=== PATIENT | female | born 1990 | race Two or more races ===

== ENCOUNTER 2019-03-30 11:19 | Inpatient (IN) | payer SELFPAY ==
[~2019-03-30] VITALS: Ht 157.5 cm; Wt 62.1 kg
[2019-03-30 11:46] LABS: BILIRUBIN,URINE SMALL (NEG); CLARITY,URINE CLOUDY; COLOR,URINE AMBER; NITRITE,URINE NEGATIVE (NEG); PROTEIN,URINE 30 mg/dL (NEG-TRACE)
[2019-03-30 11:52] LABS: BARBITURATES NEG (NEG); BENZODIAZEPINES NEG (NEG); CANNABINOIDS NEG (NEG); COCAINE NEG (NEG); METHADONE NEG (NEG); OPIATES NEG (NEG); PHENCYCLIDINE NEG (NEG)
[2019-03-30 11:53] LABS: AMPHETAMINE/METHAMPHETAMINE NEG (NEG)
[2019-03-30 12:00] LABS: BACTERIA,URINE MANY /HPF (0-FEW); SQUAMOUS EPITHELIAL CELL,UR MANY /LPF
[2019-03-30 12:01] LABS: RBC,URINE 20-40 /HPF (0-2); WBC,URINE 20-40 /HPF (0-4)
[2019-03-30] MEDS: IV RINGERS,LACTATED 1000ML 1,000 ML IV SCH ×4 (13:28→21:02)
[2019-03-30] MEDS: AMPICILLIN SODIUM 1 GM in IV NORMAL SALINE 50ML 50 ML IV SCH ×3 (13:28→20:00)
[2019-03-30 13:30] LABS: BASO % 0 % (0-3); EOS # 0.1 x10^3/uL (0.0-0.7); EOS % 1 % (0-3); HEMATOCRIT 38.1 % (36.0-47.0); HEMOGLOBIN 12.9 g/dL (12.0-15.5); LYMPH % 17 % (24-48); MEAN CORPUSCULAR HEMOGLOBIN 34 pg (25-35); MEAN CORPUSCULAR HGB CONC 34 g/dL (31-37); MEAN CORPUSCULAR VOLUME 101 fL (79-100); MONO # 0.4 x10^3/uL (0.0-1.1); MONO % 7 % (0-9); NEUT # 4.8 x10^3uL (1.8-7.7); NEUT % 76 % (31-73); PLATELET COUNT 234 x10^3/uL (140-400); RED BLOOD COUNT 3.76 x10^6/uL (3.50-5.40); RED CELL DISTRIBUTION WIDTH 13.8 % (11.5-14.5); WHITE BLOOD COUNT 6.3 x10^3/uL (4.0-11.0)
[2019-03-30] MEDS ORDERED: NALBUPHINE 10 MG/ML AMPUL. IV PRN ×2 (15:00)
[2019-03-30] MEDS ORDERED: fentaNYL PF VIAL 100 MCG/2 ML VIAL IV PRN ×2 (15:00)
[2019-03-30] MEDS ORDERED: BUTORPHANOL 2 MG/ML VIAL. IV PRN ×2 (15:00)
[2019-03-30] MEDS ORDERED: 0.9 % SODIUM CHLORIDE 10 ML DISP.SYRIN. IV PRN ×2 (15:00→22:00)
[2019-03-30] MEDS ORDERED: LIDOCAINE 1% PF 30 ML VIAL. INJ PRN (15:00)
[2019-03-30] MEDS ORDERED: ONDANSETRON PF 4 MG/2 ML VIAL. IV PRN ×2 (15:00→22:00)
[2019-03-30] MEDS ORDERED: TERBUTALINE 1 MG/ML VIAL. SQ PRN (15:00)
[2019-03-30] MEDS ORDERED: OXYTOCIN 30 UNIT/500 ML PREMIX 500 ML IV PRN ×2 (15:00→22:00)
[2019-03-30] MEDS ORDERED: DINOPROSTONE 10 MG SUPP.VAG VG ONE (15:00)
[2019-03-30 15:10] VITALS: BP 121/75
--- NOTE | 2019-03-30 15:20 | RAD ---
EXAM: Obstetrics sonogram. HISTORY: Limited care. TECHNIQUE: Sonographic imaging of a gravid uterus was performed. COMPARISON: None. FINDINGS: There is a single intrauterine fetus in cephalic presentation with a heart rate of 150 bpm. The cervix is closed and measures 3.7 cm in length. There is an anterior placenta without evidence of placenta previa. The amniotic fluid index is decreased at 2.8 cm. There is body motion. The biparietal diameter is 9.35 cm, corresponding with 38 weeks and 0 days. The head circumference is 33.98 cm, corresponding with 39 weeks and 1 day. The abdominal circumference is 34.97 cm, corresponding with 38 weeks and 6 days. The femoral length is 7.61 cm, corresponding with 38 weeks and 6 days. The estimated gestational age patient combined ultrasound measurements is 38 weeks and 5 days and the estimated due date is 04/08/2019. IMPRESSION: 1. Single intrauterine fetus in cephalic presentation with a heart rate of 150 bpm and gestational age based on ultrasound measurements of 38 weeks and 5 days. The anatomy is not formally assessed due to late gestational age. 2. Oligohydramnios. The MARCIAL is 2.8 cm. This information was communicated to the RN caring for the patient at the conclusion of the exam. Electronically signed by: Sujatha Galindo MD (03/30/2019 3:17 PM) [facility]
[2019-03-30] MEDS ORDERED: ceFAZolin 2GM PREMIX 2 GM/50 ML BAG IV ONE (21:00)
[2019-03-30] MEDS ORDERED: DEXAMETHASONE SOD PHOS 4 MG/ML VIAL ONE (21:42)
[2019-03-30] MEDS ORDERED: OXYTOCIN 10 UNIT/ML VIAL. ONE (21:45)
[2019-03-30] MEDS ORDERED: ONDANSETRON PF 4 MG/2 ML VIAL. ONE (21:45)
[2019-03-30] MEDS ORDERED: fentaNYL PF VIAL 100 MCG/2 ML VIAL ONE (21:45)
[2019-03-30] MEDS ORDERED: ZOLPIDEM 5 MG TABLET. PO PRN (22:00)
[2019-03-30] MEDS ORDERED: CITRIC ACID/SODIUM CITRATE 30 ML SOLUTION. ONE (22:00)
[2019-03-30] MEDS ORDERED: diphenhydrAMINE ORAL ELIXIR 12.5 MG/5 ML ML PO PRN (22:00)
[2019-03-30] MEDS ORDERED: CITRIC ACID/SODIUM CITRATE 30 ML SOLUTION. PO ONE (22:00)
[2019-03-30] MEDS ORDERED: MAG HYDROX/ALUMINUM HYD/SIMETH 30 ML ORAL.SUSP PO PRN (22:00)
[2019-03-30] MEDS ORDERED: DOCUSATE SODIUM 100 MG CAPSULE. PO PRN (22:00)
[2019-03-30] MEDS ORDERED: MMR per PROTOCOL. MC PRN (22:00)
[2019-03-30] MEDS ORDERED: HYDROCORTISONE 1% TOPICAL OINTMENT 30GM TUBE. TP PRN (22:00)
--- NOTE | 2019-03-30 22:06 | PDOC ---
GENERAL General: 28 yrs old lady 38 weeks admitted in labor she is anne patient and also has low amniotic fluid. heart tones has tachycardia and cervix closed. non reassuring heart tones. has also bleeding. VITAL SIGNS Vital Signs: Vital Signs Date Time Temp Pulse Resp B/P (MAP) Pulse Ox O2 Delivery O2 Flow Rate FiO2 03/30/19 15:10 98.4 75 20 121/75 (90) 98.4 ALLERGIES Allergies: Allergies Coded Allergies Type Severity Reaction Last Updated Verified No Known Drug Allergies 03/30/19 No MEDS Medications: Current Medications Medications (Trade) Dose Ordered Sig/Nirmala Start Time Stop Time Status Last Admin Dose Admin Ampicillin Sodium 1 gm/Sodium Chloride 50 ml @ 100 mls/hr Q4HRS 03/30/19 13:00 03/30/19 17:39 100 MLS/HR Butorphanol Tartrate (Stadol) 2 mg PRN Q1HR PRN 03/30/19 15:00 Cefazolin Sodium/ Dextrose 50 ml @ 100 mls/hr 1X ONCE 03/30/19 22:00 03/30/19 22:29 Citric Acid/ Sodium Citrate (Bicitra) 30 ml 1X ONCE 03/30/19 22:00 03/30/19 22:01 Dexamethasone Sodium Phosphate (Decadron) 4 mg STK-MED ONCE 03/30/19 21:42 03/30/19 21:43 DC Dinoprostone (Cervidil) 10 mg 1X ONCE 03/30/19 15:00 03/30/19 15:09 DC 03/30/19 16:08 10 MG Fentanyl Citrate (Fentanyl 2ml Vial) 100 mcg STK-MED ONCE 03/30/19 21:45 03/30/19 21:46 DC Ibuprofen (Motrin) 800 mg PRN Q6HRS PRN 03/30/19 15:00 Lidocaine HCl (Xylocaine 1% Pf 30ml Vial) 30 ml 1X PRN PRN 03/30/19 15:00 04/01/19 14:59 Nalbuphine HCl (Nubain) 10 mg PRN Q1HR PRN 03/30/19 15:00 Ondansetron HCl (Zofran) 4 mg STK-MED ONCE 03/30/19 21:45 03/30/19 21:46 DC Oxytocin (Pitocin) 10 unit STK-MED ONCE 03/30/19 21:45 03/30/19 21:46 DC Oxytocin/Sodium Chloride 500 ml @ 0 mls/hr CONT PRN PRN 03/30/19 15:00 Ringer's Solution 1,000 ml @ 125 mls/hr Q8H 03/30/19 13:02 03/30/19 20:37 125 MLS/HR Sodium Chloride (Normal Saline Flush) 3 ml QSHIFT PRN 03/30/19 15:00 03/30/19 16:08 3 ML Terbutaline Sulfate (Brethine) 0.25 mg 1X PRN PRN 03/30/19 15:00 03/31/19 14:59 LAB Lab: Laboratory Tests Test 03/30/19 11:38 03/30/19 13:10 Urine Collection Type Unknown Urine Color Marii Urine Clarity Cloudy Urine pH 7.0 Urine Specific [place] 1.025 Urine Protein 30 mg/dL (NEG-TRACE) Urine Glucose (UA) Negative mg/dL (NEG) Urine Ketones (Stick) Trace mg/dL (NEG) Urine Blood Large (NEG) Urine Nitrite Negative (NEG) Urine Bilirubin Small (NEG) Urine Urobilinogen Dipstick 1.0 mg/dL (0.2 mg/dL) Urine Leukocyte Esterase Moderate (NEG) Urine RBC 20-40 /HPF (0-2) Urine WBC 20-40 /HPF (0-4) Urine Squamous Epithelial Cells Many /LPF Urine Bacteria Many /HPF (0-FEW) Urine Mucus Marked /LPF Urine Opiates Screen Neg (NEG) Urine Methadone Screen Neg (NEG) Urine Barbiturates Neg (NEG) Urine Phencyclidine Screen Neg (NEG) Urine Amphetamine/Methamphetamine Neg (NEG) Urine Benzodiazepines Screen Neg (NEG) Urine Cocaine Screen Neg (NEG) Urine Cannabinoids Screen Neg (NEG) Urine Ethyl Alcohol Neg (NEG) White Blood Count 6.3 x10^3/uL (4.0-11.0) Red Blood Count 3.76 x10^6/uL (3.50-5.40) Hemoglobin 12.9 g/dL (12.0-15.5) Hematocrit 38.1 % (36.0-47.0) Mean Corpuscular Volume 101 fL (79-100) Mean Corpuscular Hemoglobin 34 pg (25-35) Mean Corpuscular Hemoglobin Concent 34 g/dL (31-37) Red Cell Distribution Width 13.8 % (11.5-14.5) Platelet Count 234 x10^3/uL (140-400) Neutrophils (%) (Auto) 76 % (31-73) Lymphocytes (%) (Auto) 17 % (24-48) Monocytes (%) (Auto) 7 % (0-9) Eosinophils (%) (Auto) 1 % (0-3) Basophils (%) (Auto) 0 % (0-3) Neutrophils # (Auto) 4.8 x10^3uL (1.8-7.7) Lymphocytes # (Auto) 1.0 x10^3/uL (1.0-4.8) Monocytes # (Auto) 0.4 x10^3/uL (0.0-1.1) Eosinophils # (Auto) 0.1 x10^3/uL (0.0-0.7) Basophils # (Auto) 0.0 x10^3/uL (0.0-0.2) ASSESSMENT & PLAN A&P Explained to patient about non reassuring heart rates. Also low amniotic fluid. will do . REANNA MACHADO MD March 30, 2019 22:06
--- NOTE | 2019-03-30 23:18 | OP ---
DATE OF SURGERY: 03/30/2019 PREOPERATIVE DIAGNOSES: Primigravida, 38 weeks , oligohydramnios and non-reassuring heart rate pattern with distress. POSTOPERATIVE DIAGNOSES: Primigravida, 38 weeks , oligohydramnios and non-reassuring heart rate pattern with distress. OPERATION PERFORMED: Lower segment section. OPERATIVE PROCEDURE: The patient was taken to the operating room and per patient request, she was given general anesthetic. Under general anesthetic, a Pfannenstiel incision was made. Abdomen opened in layers. Bladder flap peritoneum was dissected and bladder pushed way down the lower segment of the uterus and incision is made on the uterus and is extended on either side using index fingers. A live female infant, weighing 7-pound 10-ounce was delivered at 2222 hours on 03/30/2019 with the score of 8, 9 and 9 without any problem. Cord was clamped and cord pH were sent for. Cord blood was taken. Placenta removed. Uterus sutured in 2 layers using #1 chromic catgut sutures. Reperitonealization was done with continuous 0 chromic catgut sutures. All the blood clots in the pelvic cavity are removed. Uterus placed in the abdominal cavity and abdomen closed in layers using continuous 0 chromic catgut sutures for the peritoneum, the muscle, and the fascia; 3-0 plain continuous sutures applied for subcutaneous tissue; 3-0 Vicryl subcutaneous sutures were placed. A pressure dressing was given. The patient was sent to the recovery room in good condition. No complications encountered at time of the procedure. Estimated blood loss about 500 mL. Postoperative condition is stable. Mother tolerated the surgery well. No complications at this time. REANNA MACHADO MD DR: JELENA/elda JOB#: [id number] / [id number]
[2019-03-31] MEDS ORDERED: IBUPROFEN 200 MG TABLET. PO SCH
--- NOTE | 2019-03-31 01:22 | HP ---
ADMIT DATE: 03/30/2019 CHIEF COMPLAINT AND HISTORY OF PRESENT ILLNESS: This patient is a 28-year-old Swedish lady, who is a patient from [facility], who came to Labor and Delivery at the hospital with a history of having contractions and also complaining of some vaginal bleeding; and at the time of admission to the hospital, cervix was closed and brownish discharge in the vaginal area and heart tones were 138 per minute. Unknown due date since the patient had a sonogram, which showed 38 weeks' with oligohydramnios and vertex presenting. PHYSICAL EXAMINATION: VITAL SIGNS: Stable. HEAD, EYES, EARS, NOSE AND THROAT EXAMINATION: Within normal limits. LUNGS: Clear. HEART: Heart sounds, regular sinus rhythm. ABDOMEN: A 38-week size uterus. heart tones of 138 per minute, vertex presenting. PELVIC EXAMINATION: Shows cervical os is closed and the presenting part is high. EXTREMITIES: No edema of feet. IMPRESSION: Primigravida, labor, non-reassuring heart rate and distress and oligohydramnios. PLAN: Observation and further treatment. REANNA MACHADO MD DR: JELENA/elda JOB#: [id number] / [id number]
[2019-03-31] MEDS: IV RINGERS,LACTATED 1000ML 1,000 ML IV SCH ×3 (01:29→09:07)
[2019-03-31 02:00] VITALS: BP 102/59
[2019-03-31] MEDS: AMPICILLIN SODIUM 1 GM in IV NORMAL SALINE 50ML 50 ML IV SCH ×3 (03:12)
[2019-03-31 04:45] VITALS: BP 93/58
[2019-03-31] MEDS ORDERED: OXYTOCIN 30 UNIT/500 ML PREMIX 500 ML IV PRN (05:00)
[2019-03-31] MEDS ORDERED: FERROUS SULFATE 325 MG TABLET. PO SCH (08:00)
[2019-03-31 08:04] VITALS: BP 90/53
[2019-03-31] MEDS: oxyCODONE/APAP 5/325 1 TAB TABLET PO PRN ×2 (09:07→16:10)
[2019-03-31 12:38] VITALS: BP 94/57
--- NOTE | 2019-03-31 13:15 | PDOC ---
GENERAL General: Vital signs stable Doing ok. VITAL SIGNS Vital Signs: Vital Signs Date Time Temp Pulse Resp B/P (MAP) Pulse Ox O2 Delivery O2 Flow Rate FiO2 03/31/19 09:07 18 Room Air 03/31/19 08:04 98.7 67 90/53 (65) 98 98.7 I & O I & O Intake and Output 03/31/19 06:59 Intake Total 400 ml Output Total 400 ml Balance 0 ml Intake Oral 400 ml Output Urine Total 400 ml ALLERGIES Allergies: Allergies Coded Allergies Type Severity Reaction Last Updated Verified No Known Drug Allergies 03/30/19 No MEDS Medications: Current Medications Medications (Trade) Dose Ordered Sig/Nirmala Start Time Stop Time Status Last Admin Dose Admin Al Hydroxide/Mg Hydroxide (Mylanta Plus Xs) 30 ml PRN Q4HRS PRN 03/30/19 22:00 Ampicillin Sodium 1 gm/Sodium Chloride 50 ml @ 100 mls/hr Q4HRS 03/30/19 13:00 03/30/19 17:39 100 MLS/HR Butorphanol Tartrate (Stadol) 2 mg PRN Q1HR PRN 03/30/19 15:00 Cefazolin Sodium/ Dextrose (Ancef 2gm Premix) 2 gm STK-MED ONCE 03/30/19 21:00 03/31/19 12:20 DC Citric Acid/ Sodium Citrate (Bicitra) 30 ml STK-MED ONCE 03/30/19 22:00 03/31/19 08:11 DC Dexamethasone Sodium Phosphate (Decadron) 4 mg STK-MED ONCE 03/30/19 21:42 03/30/19 21:43 DC Dinoprostone (Cervidil) 10 mg 1X ONCE 03/30/19 15:00 03/30/19 15:09 DC 03/30/19 16:08 10 MG Diphenhydramine HCl (Benadryl Oral Elixir) 12.5 mg PRN Q6HRS PRN 03/30/19 22:00 Docusate Sodium (Colace) 100 mg PRN BID PRN 03/30/19 22:00 03/31/19 09:06 100 MG Fentanyl Citrate (Fentanyl 2ml Vial) 100 mcg STK-MED ONCE 03/30/19 21:45 03/30/19 21:46 DC Ferrous Sulfate (Feosol) 325 mg BIDWMEALS 03/31/19 08:00 Hydrocortisone (Cortaid) 1 billy PRN QID PRN 03/30/19 22:00 Ibuprofen (Motrin) 600 mg Q6HRS 03/31/19 00:00 Info (Do NOT chart on this placeholder) 1 ea PRN 1X PRN 03/30/19 22:00 Lidocaine HCl (Xylocaine 1% Pf 30ml Vial) 30 ml 1X PRN PRN 03/30/19 15:00 04/01/19 14:59 Nalbuphine HCl (Nubain) 10 mg PRN Q1HR PRN 03/30/19 15:00 Ondansetron HCl (Zofran) 4 mg PRN Q6HRS PRN 03/30/19 22:00 Oxycodone/ Acetaminophen (Percocet 5/325) 2 tab PRN Q4HRS PRN 03/30/19 22:00 03/31/19 09:07 1 TAB Oxytocin (Pitocin) 10 unit STK-MED ONCE 03/30/19 21:45 03/30/19 21:46 DC Oxytocin/Sodium Chloride 500 ml @ 125 mls/hr CONT PRN 03/30/19 22:00 03/31/19 06:00 DC Ringer's Solution 1,000 ml @ 125 mls/hr Q8H 03/30/19 13:02 03/30/19 20:37 125 MLS/HR Sodium Chloride (Normal Saline Flush) 3 ml QSHIFT PRN 03/30/19 22:00 Terbutaline Sulfate (Brethine) 0.25 mg 1X PRN PRN 03/30/19 15:00 03/31/19 14:59 Zolpidem Tartrate (Ambien) 5 mg PRN QHS PRN 03/30/19 22:00 LAB Lab: Laboratory Tests Test 03/30/19 13:10 White Blood Count 6.3 x10^3/uL (4.0-11.0) Red Blood Count 3.76 x10^6/uL (3.50-5.40) Hemoglobin 12.9 g/dL (12.0-15.5) Hematocrit 38.1 % (36.0-47.0) Mean Corpuscular Volume 101 fL (79-100) Mean Corpuscular Hemoglobin 34 pg (25-35) Mean Corpuscular Hemoglobin Concent 34 g/dL (31-37) Red Cell Distribution Width 13.8 % (11.5-14.5) Platelet Count 234 x10^3/uL (140-400) Neutrophils (%) (Auto) 76 % (31-73) Lymphocytes (%) (Auto) 17 % (24-48) Monocytes (%) (Auto) 7 % (0-9) Eosinophils (%) (Auto) 1 % (0-3) Basophils (%) (Auto) 0 % (0-3) Neutrophils # (Auto) 4.8 x10^3uL (1.8-7.7) Lymphocytes # (Auto) 1.0 x10^3/uL (1.0-4.8) Monocytes # (Auto) 0.4 x10^3/uL (0.0-1.1) Eosinophils # (Auto) 0.1 x10^3/uL (0.0-0.7) Basophils # (Auto) 0.0 x10^3/uL (0.0-0.2) ASSESSMENT & PLAN A&P Abdomen soft Uterus firm lochia normal Incision healing ok. REANNA MACHADO MD March 31, 2019 13:15
[2019-03-31] MEDS: IBUPROFEN 400 MG TABLET. PO PRN (16:10)
[2019-03-31 16:11] VITALS: BP 93/62
--- NOTE | 2019-03-31 16:29 | NUR ---
Note: Pt.'s family member Christine Brunner (who is the sister of the Pt.'s [id number]) present to visit Pt. and baby. Christine discussed with Lisa Ann RN and Dhiraj Palumbo RN in [facility] that she and the family have concerns about the Pt. and being able to handle the stress of taking care of the baby once she is discharged home. Pt. currently resides with her brother and her [id number]. Pt.'s is currently incarcerated and it is unknown if he will be released from nursing home. Christine reports the Pt. having a history of "episodes" a year ago where Pt. would fall on the floor, shake, and urinate on herself. Christine reports Pt. was hospitalized more than once for this with no apparent medical findings for episodes. Christine also reports the Pt. makes herself throw up and did throughout the . Also states the Pt. has said, "a ghost got me ," and "I feel like voices take over my body sometimes, " and "if I go crazy again take my baby so nothing bad happens to the baby." Christine denies believing that the Pt. would harm herself or harm the baby. Reports the Pt. has a history of anxiety, and that the Pt.'s mother is schizophrenic. Pt. has acted appropriately appriately with baby this shift, well, participates in assistance from RN well, and asks appropriate questions to telephone translation services (such as wanting to make sure the pain medicine she takes won't affect the baby via .) garment worker Heidi Patel notified by Lisa Ann RN, Heidi states she will notify PAT team for further evaluation. Dhiraj Palumbo RN
--- NOTE | 2019-03-31 16:36 | NUR ---
SS following up with referral regarding "new mom with in care home, financial concerns, history of depression, at risk for post depression." SS discussed with RN. RN reported that infant mother is Brazilian speaking and reported a family history of her mother having schizophrenia. Per RN, infant mother concerned with her own mental health and reported having weird thoughts. Infant RN requesting assessment and evaluation of mother. RN also reported that mother had limited care, but reported that her UDS was negative and she is bonding well with infant and seems concerned for infants well being. SS contacted PAT team and spoke with Etienne. They reported that they would have Heidi from the PAT team come to visit with infant mother today and assess for mental health needs. Infant RN notified.
--- NOTE | 2019-03-31 18:40 | NUR ---
Member from PAT team present, updated on family reports about Pt. per Lisa Ann RN. [employer] Amharic telephone translation line set up for PAT team for further discussion with Pt., No family present in room at this time. Dhiraj Palumbo RN
[2019-03-31 23:00] VITALS: BP 89/55
[2019-04-01] MEDS: IBUPROFEN 400 MG TABLET. PO PRN ×2 (01:33→13:25)
[2019-04-01 06:02] VITALS: BP 105/71
[2019-04-01 06:22] LABS: HEMATOCRIT 32.7 % (36.0-47.0); RED BLOOD COUNT 3.21 x10^6/uL (3.50-5.40); RED CELL DISTRIBUTION WIDTH 13.8 % (11.5-14.5); WHITE BLOOD COUNT 8.7 x10^3/uL (4.0-11.0)
[2019-04-01 11:52] VITALS: BP 95/61
[2019-04-01] MEDS: oxyCODONE/APAP 5/325 1 TAB TABLET PO PRN (13:25)
--- NOTE | 2019-04-01 14:49 | NUR ---
SS following up with referral and assessment for resources. Per notes mothers UDS was negative. PAT team visited with infants mother on 03/31/2019 and provided resources to the [facility] for counseling. PAT team reported no concerns with pt's mental health stability at this time. SS met with infants mother to assess for resources. As observed, infants mother was bonding well with infant well in room. Infants mother reported that she has been living with her brother and sister in law for approximately five months. She reported that infants father was in nursing home. Infants mother reported that she is not a citizen and reported that she is unfamiliar with the medical requirements for children in the [place]. SS discussed well baby exams and provided infants mother with information on [facility]. Infants mother reported that she planned to breast feed at home. Infants mother reported that she lives with her brother and sister in law but they cannot provide her with support as they have enough difficulties providing for there own family. She reported that she does not work and has no income at this time. Infants mother reported that she has no car seat, no diapers or wipes, and has no financial resources to help support to include transportation. Infants mother reported that she does have clothing for . Infants mother agreed to [facility] referral. SS phoned and faxed referral to [facility], ; fax [phone]. SS concerned with mothers lack of resources and supplies for infant and knowledge regarding the medical needs of infant. SS completed DCF hotline report, intake# [id number]. Infant RN notified.
--- NOTE | 2019-04-01 15:13 | PDOC ---
GENERAL General: Patient nursing the Baby. Mom doing well. VITAL SIGNS Vital Signs: Vital Signs Date Time Temp Pulse Resp B/P (MAP) Pulse Ox O2 Delivery O2 Flow Rate FiO2 04/01/19 13:25 16 Room Air 04/01/19 11:52 98.1 87 95/61 (72) 98 98.1 I & O I & O Intake and Output 04/01/19 07:00 Intake Total 6146 ml Output Total 2450 ml Balance 3696 ml Intake Oral 2200 ml IV Total 2000 ml Blood Product IV Normal Saline Flush 1946 ml Output Urine Total 2450 ml # Voids 1 ALLERGIES Allergies: Allergies Coded Allergies Type Severity Reaction Last Updated Verified No Known Drug Allergies 03/30/19 No MEDS Medications: Current Medications Medications (Trade) Dose Ordered Sig/Nirmala Start Time Stop Time Status Last Admin Dose Admin Al Hydroxide/Mg Hydroxide (Mylanta Plus Xs) 30 ml PRN Q4HRS PRN 03/30/19 22:00 04/01/19 13:10 30 ML Ampicillin Sodium 1 gm/Sodium Chloride 50 ml @ 100 mls/hr Q4HRS 03/30/19 13:00 04/01/19 04:06 DC 03/30/19 17:39 100 MLS/HR Butorphanol Tartrate (Stadol) 2 mg PRN Q1HR PRN 03/30/19 15:00 Cefazolin Sodium/ Dextrose (Ancef 2gm Premix) 2 gm STK-MED ONCE 03/30/19 21:00 03/31/19 12:20 DC Citric Acid/ Sodium Citrate (Bicitra) 30 ml STK-MED ONCE 03/30/19 22:00 03/31/19 08:11 DC Dexamethasone Sodium Phosphate (Decadron) 4 mg STK-MED ONCE 03/30/19 21:42 03/30/19 21:43 DC Dinoprostone (Cervidil) 10 mg 1X ONCE 03/30/19 15:00 03/30/19 15:09 DC 03/30/19 16:08 10 MG Diphenhydramine HCl (Benadryl Oral Elixir) 12.5 mg PRN Q6HRS PRN 03/30/19 22:00 Docusate Sodium (Colace) 100 mg PRN BID PRN 03/30/19 22:00 03/31/19 09:06 100 MG Fentanyl Citrate (Fentanyl 2ml Vial) 100 mcg STK-MED ONCE 03/30/19 21:45 03/30/19 21:46 DC Ferrous Sulfate (Feosol) 325 mg BIDWMEALS 03/31/19 08:00 Hydrocortisone (Cortaid) 1 billy PRN QID PRN 03/30/19 22:00 Ibuprofen (Motrin) 600 mg Q6HRS 03/31/19 00:00 Info (Do NOT chart on this placeholder) 1 ea PRN 1X PRN 03/30/19 22:00 Lidocaine HCl (Xylocaine 1% Pf 30ml Vial) 30 ml 1X PRN PRN 03/30/19 15:00 04/01/19 14:59 DC Nalbuphine HCl (Nubain) 10 mg PRN Q1HR PRN 03/30/19 15:00 Ondansetron HCl (Zofran) 4 mg PRN Q6HRS PRN 03/30/19 22:00 Oxycodone/ Acetaminophen (Percocet 5/325) 2 tab PRN Q4HRS PRN 03/30/19 22:00 04/01/19 13:25 1 TAB Oxytocin (Pitocin) 10 unit STK-MED ONCE 03/30/19 21:45 03/30/19 21:46 DC Oxytocin/Sodium Chloride 500 ml @ 125 mls/hr CONT PRN 03/30/19 22:00 03/31/19 06:00 DC Ringer's Solution 1,000 ml @ 125 mls/hr Q8H 03/30/19 13:02 03/30/19 20:37 125 MLS/HR Sodium Chloride (Normal Saline Flush) 3 ml QSHIFT PRN 03/30/19 22:00 Terbutaline Sulfate (Brethine) 0.25 mg 1X PRN PRN 03/30/19 15:00 03/31/19 14:59 DC Zolpidem Tartrate (Ambien) 5 mg PRN QHS PRN 03/30/19 22:00 LAB Lab: Laboratory Tests Test 04/01/19 04:55 White Blood Count 8.7 x10^3/uL (4.0-11.0) Red Blood Count 3.21 x10^6/uL (3.50-5.40) Hemoglobin 11.0 g/dL (12.0-15.5) Hematocrit 32.7 % (36.0-47.0) Mean Corpuscular Volume 102 fL (79-100) Mean Corpuscular Hemoglobin 34 pg (25-35) Mean Corpuscular Hemoglobin Concent 34 g/dL (31-37) Red Cell Distribution Width 13.8 % (11.5-14.5) Platelet Count 181 x10^3/uL (140-400) ASSESSMENT & PLAN A&P Plan dismissal in AM. Vital signs stable. REANNA MACHADO MD April 01, 2019 15:13
[2019-04-01 18:56] VITALS: BP 98/63
[2019-04-01 23:05] VITALS: BP 93/65
[2019-04-02 06:15] VITALS: BP 91/62
--- NOTE | 2019-04-02 09:33 | PDOC ---
GENERAL General: Mom doing ok Breast feeding the Baby. VITAL SIGNS Vital Signs: Vital Signs Date Time Temp Pulse Resp B/P (MAP) Pulse Ox O2 Delivery O2 Flow Rate FiO2 04/02/19 06:15 98.8 81 16 91/62 (72) 98 98.8 04/01/19 23:05 Room Air ALLERGIES Allergies: Allergies Coded Allergies Type Severity Reaction Last Updated Verified No Known Drug Allergies 03/30/19 No MEDS Medications: Current Medications Medications (Trade) Dose Ordered Sig/Nirmala Start Time Stop Time Status Last Admin Dose Admin Al Hydroxide/Mg Hydroxide (Mylanta Plus Xs) 30 ml PRN Q4HRS PRN 03/30/19 22:00 04/01/19 13:10 30 ML Ampicillin Sodium 1 gm/Sodium Chloride 50 ml @ 100 mls/hr Q4HRS 03/30/19 13:00 04/01/19 04:06 DC 03/30/19 17:39 100 MLS/HR Butorphanol Tartrate (Stadol) 2 mg PRN Q1HR PRN 03/30/19 15:00 Cefazolin Sodium/ Dextrose (Ancef 2gm Premix) 2 gm STK-MED ONCE 03/30/19 21:00 03/31/19 12:20 DC Citric Acid/ Sodium Citrate (Bicitra) 30 ml STK-MED ONCE 03/30/19 22:00 03/31/19 08:11 DC Dexamethasone Sodium Phosphate (Decadron) 4 mg STK-MED ONCE 03/30/19 21:42 03/30/19 21:43 DC Dinoprostone (Cervidil) 10 mg 1X ONCE 03/30/19 15:00 03/30/19 15:09 DC 03/30/19 16:08 10 MG Diphenhydramine HCl (Benadryl Oral Elixir) 12.5 mg PRN Q6HRS PRN 03/30/19 22:00 Docusate Sodium (Colace) 100 mg PRN BID PRN 03/30/19 22:00 03/31/19 09:06 100 MG Fentanyl Citrate (Fentanyl 2ml Vial) 100 mcg STK-MED ONCE 03/30/19 21:45 03/30/19 21:46 DC Ferrous Sulfate (Feosol) 325 mg BIDWMEALS 03/31/19 08:00 04/01/19 20:03 DC Hydrocortisone (Cortaid) 1 billy PRN QID PRN 03/30/19 22:00 Ibuprofen (Motrin) 600 mg Q6HRS 03/31/19 00:00 Info (Do NOT chart on this placeholder) 1 ea PRN 1X PRN 03/30/19 22:00 Lidocaine HCl (Xylocaine 1% Pf 30ml Vial) 30 ml 1X PRN PRN 03/30/19 15:00 04/01/19 14:59 DC Nalbuphine HCl (Nubain) 10 mg PRN Q1HR PRN 03/30/19 15:00 Ondansetron HCl (Zofran) 4 mg PRN Q6HRS PRN 03/30/19 22:00 Oxycodone/ Acetaminophen (Percocet 5/325) 2 tab PRN Q4HRS PRN 03/30/19 22:00 04/01/19 13:25 1 TAB Oxytocin (Pitocin) 10 unit STK-MED ONCE 03/30/19 21:45 03/30/19 21:46 DC Oxytocin/Sodium Chloride 500 ml @ 125 mls/hr CONT PRN 03/30/19 22:00 03/31/19 06:00 DC Ringer's Solution 1,000 ml @ 125 mls/hr Q8H 03/30/19 13:02 03/30/19 20:37 125 MLS/HR Sodium Chloride (Normal Saline Flush) 3 ml QSHIFT PRN 03/30/19 22:00 Terbutaline Sulfate (Brethine) 0.25 mg 1X PRN PRN 03/30/19 15:00 03/31/19 14:59 DC Zolpidem Tartrate (Ambien) 5 mg PRN QHS PRN 03/30/19 22:00 ASSESSMENT & PLAN A&P Vital signs stable Abdomen soft lochia normal. Will go home tomorrow. REANNA MACHADO MD April 02, 2019 09:33
[2019-04-02 10:24] VITALS: BP 100/63
--- NOTE | 2019-04-02 13:50 | NUR ---
SS received notification that DCF referral was assigned to DCF worker, Carmelita Brennan. SS received an e-mail form Carmelita reporting that she would come to the hospital this afternoon and would visit with infants mother to assess needs. RN notified.
[2019-04-02 13:57] VITALS: BP 98/56
[2019-04-02 20:50] VITALS: BP 103/72
[2019-04-03 06:19] VITALS: BP 93/68
--- NOTE | 2019-04-03 08:47 | PDOC ---
GENERAL General: Patient Doing Ok Likes to go home. VITAL SIGNS Vital Signs: Vital Signs Date Time Temp Pulse Resp B/P (MAP) Pulse Ox O2 Delivery O2 Flow Rate FiO2 04/03/19 06:19 98.3 61 18 93/68 (76) 98 Room Air 98.3 ALLERGIES Allergies: Allergies Coded Allergies Type Severity Reaction Last Updated Verified No Known Drug Allergies 03/30/19 No MEDS Medications: Current Medications Medications (Trade) Dose Ordered Sig/Nirmala Start Time Stop Time Status Last Admin Dose Admin Al Hydroxide/Mg Hydroxide (Mylanta Plus Xs) 30 ml PRN Q4HRS PRN 03/30/19 22:00 04/01/19 13:10 30 ML Ampicillin Sodium 1 gm/Sodium Chloride 50 ml @ 100 mls/hr Q4HRS 03/30/19 13:00 04/01/19 04:06 DC 03/30/19 17:39 100 MLS/HR Butorphanol Tartrate (Stadol) 2 mg PRN Q1HR PRN 03/30/19 15:00 Cefazolin Sodium/ Dextrose (Ancef 2gm Premix) 2 gm STK-MED ONCE 03/30/19 21:00 03/31/19 12:20 DC Citric Acid/ Sodium Citrate (Bicitra) 30 ml STK-MED ONCE 03/30/19 22:00 03/31/19 08:11 DC Dexamethasone Sodium Phosphate (Decadron) 4 mg STK-MED ONCE 03/30/19 21:42 03/30/19 21:43 DC Dinoprostone (Cervidil) 10 mg 1X ONCE 03/30/19 15:00 03/30/19 15:09 DC 03/30/19 16:08 10 MG Diphenhydramine HCl (Benadryl Oral Elixir) 12.5 mg PRN Q6HRS PRN 03/30/19 22:00 Docusate Sodium (Colace) 100 mg PRN BID PRN 03/30/19 22:00 03/31/19 09:06 100 MG Fentanyl Citrate (Fentanyl 2ml Vial) 100 mcg STK-MED ONCE 03/30/19 21:45 03/30/19 21:46 DC Ferrous Sulfate (Feosol) 325 mg BIDWMEALS 03/31/19 08:00 04/01/19 20:03 DC Hydrocortisone (Cortaid) 1 billy PRN QID PRN 03/30/19 22:00 Ibuprofen (Motrin) 600 mg Q6HRS 03/31/19 00:00 Info (Do NOT chart on this placeholder) 1 ea PRN 1X PRN 03/30/19 22:00 Lidocaine HCl (Xylocaine 1% Pf 30ml Vial) 30 ml 1X PRN PRN 03/30/19 15:00 04/01/19 14:59 DC Nalbuphine HCl (Nubain) 10 mg PRN Q1HR PRN 03/30/19 15:00 Ondansetron HCl (Zofran) 4 mg PRN Q6HRS PRN 03/30/19 22:00 Oxycodone/ Acetaminophen (Percocet 5/325) 2 tab PRN Q4HRS PRN 03/30/19 22:00 04/01/19 13:25 1 TAB Oxytocin (Pitocin) 10 unit STK-MED ONCE 03/30/19 21:45 03/30/19 21:46 DC Oxytocin/Sodium Chloride 500 ml @ 125 mls/hr CONT PRN 03/30/19 22:00 03/31/19 06:00 DC Ringer's Solution 1,000 ml @ 125 mls/hr Q8H 03/30/19 13:02 03/30/19 20:37 125 MLS/HR Sodium Chloride (Normal Saline Flush) 3 ml QSHIFT PRN 03/30/19 22:00 Terbutaline Sulfate (Brethine) 0.25 mg 1X PRN PRN 03/30/19 15:00 03/31/19 14:59 DC Zolpidem Tartrate (Ambien) 5 mg PRN QHS PRN 03/30/19 22:00 ASSESSMENT & PLAN A&P Will see her in 2 weeks.in office. Patient to go home today. REANNA MACHADO MD April 03, 2019 08:46
--- NOTE | 2019-04-03 12:55 | NUR ---
SS following up with discharge planning. SS met with DCF worker, Carmelita Brennan, at the hospital. Carmelita reported that DCF was going to provide infants mother with a car seat, crib, diapers, wipes, blankets, and other supplies needed for . She reported that DCF would assign infants mother to [facility] services for weekly visits to ensure mom has what she needs to provide for . She reported that DCF will work with mother and arrange WIC and other services in the community as needed. DCF reported that they are getting a voucher and will go to the store to buy mom all the needed supplies and will e-mail SS once supplies are in place for to safely return home. DCF reported that they will try to have the car seat to the hospital by this afternoon.
--- NOTE | 2019-04-03 13:49 | NUR ---
SS contacted [facility] to acquire copy of Medicaid application for for home healthcare referral. HCFS reported that they are unable to submit Medicaid application for infant because they need some form of picture ID for mom. Mom is reporting that she has no form of picture ID. SS notified DCF worker, Carmelita Brennan. She reported that she would staff with her tire room supervisor and find out how mom can get a picture ID.
--- NOTE | 2019-04-03 18:06 | PATHOLOGY ---
[facility] Accession Number: [id number] . 01 Material submitted: . placenta - PLACENTA AND CORD . 01 Clinical history: . Primary for non-reassuring heart tones; gestational age 39.5 weeks; ; oligohydramnios; GBS negative . 02 Diagnosis: 554 gram term placenta of an estimated 39.5 weeks gestation with attached membranes and umbilical cord: - Reactive changes of amniotic surface epithelium of placental disc. - Villitis of unknown etiology, focal. - Marginal insertion of umbilical cord. (JPM:aniket; 04/03/2019) [facility]/04/03/2019 . 02 Comment: Sections of the placental disc show several small foci of villitis of unknown etiology. There are no viral inclusions identified. There is no evidence of an acute chorioamnionitis. There are no infarcts. (DONATOM:aniket; 04/03/2019) . 02 Electronically signed: . Juan Leon MD, Pathologist NPI- [id number] . 01 Gross description: . The specimen is received in formalin, labeled "Sandy BradfordDomingodayan Rogers, placenta". Received is a beaver placenta with attached membranes and umbilical cord with a trimmed placental weight of 554 g and measuring 17.1 x 12.8 x 3.2 cm in maximum dimensions. The membranes are pale faye and translucent in appearance, and the site of membrane rupture is at the placental margin. The surface is intact displaying a normal arborizing vasculature pattern, as well as a slightly detached amnion. The trivascular umbilical cord measures 26.5 cm in length by up to 1.5 cm in diameter and displays a marginal insertion. The umbilical cord is white-faye in appearance with minimal helical twisting. The maternal surface is intact and complete; a slight amount of adherent blood coagulum is seen on the surface. Sectioning reveals red-brown cut surfaces with no grossly distinct nodules or lesions. The specimen is submitted representatively as follows: . A1 umbilical cord and surface vessels A2 membrane roll and peripheral placental segment A3-A4 full-thickness placental cross-section, divided into and maternal aspects. (CAA; 04/02/2019) QAC/QAC . 02 Pathologist provided ICD-10: O82, O43.893, Z3A.39, Z37.0 . 02 CPT . 717603 Specimen Comment: A courtesy copy of this report has been sent to Specimen Comment: [phone]. Specimen Comment: Report sent to Performed at: 01 [facility] [address], [place] [id number] MD Moustapha Watson MD Phone: [phone] Performed at: 02 [facility] [address] [place], [place] [id number] MD Juan Leon MD Phone: [phone]
--- NOTE | 2019-04-29 22:35 | DS ---
DATE OF DISCHARGE: 04/03/2019 SUBJECTIVE: The patient is a 28-year-old [place] lady who is a patient from [facility] who came to Labor and Delivery at the hospital with a history of having contractions, also complaining of some vaginal bleeding. At the time of admission to the hospital, cervix was closed and brownish discharge in the vaginal area. heart tones are 138 per minute and due date was unknown and the patient was sent for a sonogram, which showed 38 weeks' with oligohydramnios and vertex presenting. OBJECTIVE: Vital signs were stable, 38 weeks . heart tones are good. Vertex presenting. Has some vaginal bleeding and also having contractions and the presenting part was high and the heart tones gradually came down to bradycardia and nonreassuring heart rate pattern with the distress. The patient was taken for immediately and she did undergo lower segment under general anesthesia and did deliver a female infant weighing 7 pound 10 ounce with the score of 8, 9 and 9 without any problem and she had an uneventful postoperative course. Baby was referred to lard renderer for further care and treatment. DIAGNOSES: Primigravida, 38 weeks , oligohydramnios, labor, nonreassuring heart rate pattern with distress. OPERATION PERFORMED: Lower segment . PLAN: She will be sent home and seen for postoperative care in 2 weeks in the office and she will be advised to take some Tylenol for discomfort and also tramadol if needed. REANNA MACHADO MD DR: JELENA/elda JOB#: [id number] / [id number]
== END 2019-04-03 18:17 | disposition home or self-care (01) | DRG 786 ==
LOC: OBSVTOIN 11:19 → 3 SO LND 11:19 → 3 NORTH 03-31 01:30
PROVIDERS: ADMIT Obstetrics & Gynecology; ATTEND Obstetrics & Gynecology
PROC: 10D00Z1 Extraction of Products of Conception, Low, Open Approach (ICD-10-PCS; principal; 2019-03-30)
DX: O41.03X0 Oligohydramnios, third trimester, not applicable or unspecified (principal); O60.23X0 Term delivery with preterm labor, third trimester, not applicable or unspecified; O76 Abnormality in fetal heart rate and rhythm complicating labor and delivery; Z3A.38 38 weeks gestation of pregnancy; Z37.0 Single live birth
CPT/HCPCS: 36415; 76815; 80307; 81001; 85025; 85027; 86592; 86850; 86900; 86901; 87086; 87186; 88307; G0378; J0290; J0696; J1100; J2405; J2590; J3010; J7120